=== PATIENT | female | born 1995 | race Caucasian/White ===

== ENCOUNTER → 2017-02-02 | Outpatient (CLI) | payer BC ==
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
== END ==
LOC: MW.CHFP 14:44
PROVIDERS: ATTEND Physician Assistant
DX: S69.91XA Unspecified injury of right wrist, hand and finger(s), initial encounter (principal)
CPT/HCPCS: 73110-26-RT; 73110-RT

== ENCOUNTER → 2017-02-10 | Outpatient (CLI) | payer BC ==
--- NOTE | 2017-02-11 10:35 | MR ---
EXAMINATION: MRI cervical and thoracic spine HISTORY: Anesthesia of skin COMPARISON: Radiographs dated 01/02/2017 TECHNIQUE: Multiplanar and multisequence images obtained of the cervical and thoracic spine without contrast. FINDINGS: Cervical spine: The cervical spinal alignment is normal. Vertebral body heights and disc spaces appe ar well-maintained. No abnormal bone marrow signal. The cervical spinal cord signal is normal. The v isualized intracranial components appear unremarkable. No significant disc bulge, spinal canal steno sis, or neural foraminal stenosis. The paravertebral soft tissues and visualized intracranial compar tments appear normal. Thoracic spine: The thoracic spinal alignment appears normal. There is mild wedging of the T6 verteb ral body. Mild underlying bone marrow edema is noted. There is also a trace bone marrow edema within the superior endplate of T7 without significant compression. The cervical spinal cord signal appear s normal. The paravertebral soft tissues appear normal. Tiny diffuse disc bulges are noted at T6-T7 and T7-T8 without significant spinal canal or neural foraminal stenosis. The remaining individual di sc spaces appear normal. IMPRESSION: 1. Mild wedging of the T6 vertebral body, likely posttraumatic with mild residual edema. 2. Trace edema within the T7 vertebral body without significant vertebral body compression. 3. Minimal disc bulges at T6-T7 and T7-T8 without significant underlying stenosis. 4. Grossly unremarkable cervical spine.
== END ==
LOC: MW.MRI 14:45
PROVIDERS: ATTEND Physician Assistant
DX: R20.0 Anesthesia of skin (principal); S22.050A Wedge compression fracture of T5-T6 vertebra, initial encounter for closed fracture; V89.9XXS Person injured in unspecified vehicle accident, sequela; M51.84 Other intervertebral disc disorders, thoracic region
CPT/HCPCS: 72141; 72141-26; 72146; 72146-26

== ENCOUNTER 2021-12-25 02:13 | Emergency (ER) | payer SELFPAY ==
[2021-12-25] MEDS ORDERED: Sodium Chloride 0.9% 10 ML Syringe FLUSH PRN (02:26)
[2021-12-25] MEDS ORDERED: Sodium Chloride 0.9% 1,000 ML IV ONE (02:26)
[2021-12-25] MEDS ORDERED: Sodium Chloride 0.9% 2.5 ML Syringe FLUSH PRN (02:26)
[2021-12-25 03:07] LABS: BLOOD UREA NITROGEN,BUN 8 mg/dL (7.0-18.0); CARBON DIOXIDE,CO2 24.7 mmol/L (21.0-32.0); CHLORIDE,CL 99 mmol/L (98-107); GLUCOSE RANDOM 95 mg/dL (74-106); POTASSIUM,K 3.7 mmol/L (3.5-5.1); SODIUM,NA 136 mmol/L (136-145)
[2021-12-25 05:16] VITALS: BP 109/69; PULSE 71
== END 2021-12-25 05:00 | disposition home or self-care (01) ==
LOC: MW.ED 02:13
DX: O20.0 Threatened abortion (principal); Z3A.12 12 weeks gestation of pregnancy; Z72.0 Tobacco use
CPT/HCPCS: 36415; 76813; 80053; 81001; 81025; 84702; 85025; 86900; 86901; 99284; J7030; 76816-26

== ENCOUNTER 2021-12-26 12:18 | Emergency (ER) | payer SELFPAY ==
[2021-12-26] MEDS ORDERED: Acetaminophen/oxyCODONE 325-5 MG Tab PO ONE (13:07)
[2021-12-26] MEDS ORDERED: Ondansetron 4 MG Tab.DIS PO ONE (14:18)
[2021-12-26 14:33] LABS: BLOOD UREA NITROGEN,BUN 5 mg/dL (7.0-18.0); CHLORIDE,CL 102 mmol/L (98-107); GLUCOSE RANDOM 83 mg/dL (74-106); POTASSIUM,K 3.6 mmol/L (3.5-5.1); SODIUM,NA 137 mmol/L (136-145)
[2021-12-26 15:12] VITALS: BP 104/69; PULSE 84
== END 2021-12-26 15:12 | disposition home or self-care (01) ==
LOC: MW.ED 12:18
DX: O20.9 Hemorrhage in early pregnancy, unspecified (principal); Z3A.12 12 weeks gestation of pregnancy
CPT/HCPCS: 36415; 80048; 84702; 85025; 86900; 86901; 99284; A9270

== ENCOUNTER 2022-01-20 06:34 | Day surgery (SDC) | payer MEDICAID ==
[~2022-01-20 06:34] MED LIST: Lactated Ringers 1,000 ML IV SCH
[2022-01-20] MEDS ORDERED: Ondansetron 4 MG/2 ML SDV IVPUSH PRN (07:13)
[2022-01-20] MEDS ORDERED: fentaNYL 100 MCG/2 ML SDV IVPUSH PRN (07:13)
[2022-01-20] MEDS ORDERED: Naloxone 0.4 MG/ML SDV IVPUSH PRN (07:13)
[2022-01-20] MEDS ORDERED: Albuterol 0.083% 2.5 MG/3 ML Neb Soln NEB PRN (07:13)
[2022-01-20] MEDS ORDERED: Metoclopramide 10 MG/2 ML SDV IVPUSH PRN (07:13)
[2022-01-20] MEDS ORDERED: HYDROmorphone 1 MG/ML Syringe IVPUSH PRN (07:13)
[2022-01-20] MEDS ORDERED: fentaNYL 250 MCG/5 ML SDV ONE (07:19)
[2022-01-20] MEDS ORDERED: Propofol 200 MG/20 ML SDV ONE ×2 (07:19→07:49)
[2022-01-20] MEDS ORDERED: Methylergonovine 0.2 MG/1 ML Amp ONE (07:43)
[2022-01-20] MEDS ORDERED: Dexamethasone 4 MG/ML 5 ML MDV ONE (07:53)
[2022-01-20] MEDS ORDERED: Sugammadex Sodium 200 MG/2 ML VIAL ONE (07:53)
[2022-01-20] MEDS ORDERED: Rocuronium Bromide 50 MG/5 ML Syringe ONE (07:53)
[2022-01-20] MEDS ORDERED: Lidocaine 2% Jelly 30 ML Tube ONE (07:53)
[2022-01-20] MEDS ORDERED: Ondansetron 4 MG/2 ML SDV ONE (07:53)
[2022-01-20] MEDS ORDERED: ePHEDrine 50 MG/ML SDV ONE (07:53)
[2022-01-20] MEDS ORDERED: HYDROmorphone 2 MG/ML Syringe ONE (08:09)
[2022-01-20 10:35] VITALS: BP 108/54; PULSE 56
== END 2022-01-20 10:15 | disposition home or self-care (01) ==
LOC: MW.SDS 06:34
PROVIDERS: ATTEND Obstetrics & Gynecology
DX: O02.1 Missed abortion (principal); Z79.899 Other long term (current) drug therapy; F17.210 Nicotine dependence, cigarettes, uncomplicated
CPT/HCPCS: 59820; 76998; 85027; 86850; 86900; 86901; J0330; J0690; J1100; J1170; J2210; J2405; J2704; J2765; J3010; J3490; J7120; 01965

== ENCOUNTER 2022-05-15 08:52 | Emergency (ER) | payer MEDICAID ==
[2022-05-15 09:01] VITALS: BP 116/86; PULSE 94
[2022-05-15] MEDS ORDERED: Dextrose 5%-Lactated Ringers 1,000 ML IV STA (09:17)
[2022-05-15] MEDS ORDERED: Ondansetron 4 MG/2 ML SDV IVPUSH ONE (09:17)
[2022-05-15] MEDS ORDERED: Ketorolac 30 MG/ML SDV IVPUSH ONE (09:35)
[2022-05-15 10:18] LABS: CARBON DIOXIDE,CO2 23.7 mmol/L (21.0-32.0); POTASSIUM,K 3.8 mmol/L (3.5-5.1)
[2022-05-15 10:24] LABS: CORONAVIRUS COVID-19 NAA NEGATIVE (NEGATIVE); INFLUENZA A NAA NEGATIVE (NEGATIVE); INFLUENZA B NAA NEGATIVE (NEGATIVE)
== END 2022-05-15 12:33 | disposition home or self-care (01) ==
LOC: MW.ED 08:52
DX: R10.9 Unspecified abdominal pain (principal); R19.7 Diarrhea, unspecified; R11.0 Nausea; E86.0 Dehydration; F17.210 Nicotine dependence, cigarettes, uncomplicated; Z20.822 Contact with and (suspected) exposure to COVID-19
CPT/HCPCS: 0240U; 36415; 80053; 81001; 81025; 83690; 85025; 96361; 96374; 96375; 99284; J1885; J2405; J7121; 99283

== ENCOUNTER 2022-05-16 18:44 | Inpatient (IN) | payer MEDICAID ==
[2022-05-16] MEDS ORDERED: Sodium Chloride 0.9% 1,000 ML IV ONE (18:48)
[2022-05-16 19:26] LABS: CARBON DIOXIDE,CO2 22.7 mmol/L (21.0-32.0); POTASSIUM,K 3.7 mmol/L (3.5-5.1)
[2022-05-16] MEDS ORDERED: Iopamidol 755 MG/ML 500 ML Multipack Bottle IVPUSH STA (19:26)
[2022-05-16] MEDS ORDERED: Morphine 4 MG/ML VIAL IVPUSH ONE (19:31)
[2022-05-16] MEDS ORDERED: Ondansetron 4 MG/2 ML SDV IVPUSH ONE (19:31)
[2022-05-16] MEDS ORDERED: metroNIDAZOLE/Normal Saline 500 MG in Premix Bag 1 BAG IV ONE (20:49)
[2022-05-16] MEDS ORDERED: Sodium Chloride 0.9% 1,000 ML IV SCH (21:00)
[2022-05-16] MEDS ORDERED: Ciprofloxacin in D5W 400 MG in Premix Bag 1 BAG IV SCH ×2 (21:00)
[2022-05-16] MEDS ORDERED: Ondansetron 4 MG/2 ML SDV IVPUSH PRN (22:57)
[2022-05-16] MEDS ORDERED: Morphine 2 MG/ML SYRINGE IVPUSH PRN (22:59)
[2022-05-17] MEDS: metroNIDAZOLE/Normal Saline 500 MG in Premix Bag 1 BAG IV SCH ×4 (02:23→21:48)
[2022-05-17] MEDS: Sodium Chloride 0.9% 1,000 ML IV SCH ×2 (02:23→10:35)
[2022-05-17 08:08] LABS: CARBON DIOXIDE,CO2 21.2 mmol/L (21.0-32.0); POTASSIUM,K 4.1 mmol/L (3.5-5.1)
[2022-05-17] MEDS ORDERED: Ciprofloxacin in D5W 400 MG in Premix Bag 1 BAG IV SCH ×2 (09:00)
[2022-05-17] MEDS: Ciprofloxacin in D5W 400 MG in Premix Bag 1 BAG IV SCH ×4 (10:30→20:38)
[2022-05-17] MEDS ORDERED: oxyCODONE 5 MG Tab PO PRN (11:51)
[2022-05-17] MEDS ORDERED: Ibuprofen 200 MG Tab PO PRN (11:52)
[2022-05-17] MEDS: Acetaminophen 325 MG Tab PO PRN ×2 (12:27→20:42)
[2022-05-18] MEDS: metroNIDAZOLE/Normal Saline 500 MG in Premix Bag 1 BAG IV SCH ×2 (02:27→09:00)
[2022-05-18] MEDS: Sodium Chloride 0.9% 1,000 ML IV SCH ×3 (02:30→10:27)
[2022-05-18 08:04] LABS: CARBON DIOXIDE,CO2 22.5 mmol/L (21.0-32.0); POTASSIUM,K 4.2 mmol/L (3.5-5.1)
[2022-05-18] MEDS ORDERED: Nicotine 14 MG/24 Hr Patch TRDERM PRN (10:19)
[2022-05-18] MEDS: Ciprofloxacin in D5W 400 MG in Premix Bag 1 BAG IV SCH ×2 (10:26)
[2022-05-18 12:06] VITALS: BP 116/64; PULSE 74
== END 2022-05-18 12:00 | disposition home or self-care (01) | DRG 392 ==
LOC: MW.ED 18:44 → MW.MS 20:54 → OBSVTOIN 05-17 13:13 → MW.MS 05-18 07:17
PROVIDERS: ADMIT Internal Medicine; ATTEND Internal Medicine
DX: K52.9 Noninfective gastroenteritis and colitis, unspecified (principal); F17.200 Nicotine dependence, unspecified, uncomplicated; F17.210 Nicotine dependence, cigarettes, uncomplicated; Z87.440 Personal history of urinary (tract) infections; Z79.899 Other long term (current) drug therapy
CPT/HCPCS: 36415 ×2; 74177; 80053 ×2; 83605; 83690; 85025 ×2; A9270; J0744 ×2; J2270 ×2; J2405; J3490 ×3; J7030 ×3; Q9967; 80048; 84703; 87045; 87046; 87449; 87899; 96361; 96365; 96366; 96367; 96375; 96376; 99284; 99285-25; G0378

== ENCOUNTER 2023-10-21 14:38 | Inpatient (IN) | payer OTHER ==
[2023-10-21] MEDS: Lactated Ringers 1,000 ML IV SCH ×3 (15:30→21:31)
[2023-10-21] MEDS ORDERED: Carboprost Tromethamine 250 MCG/1 mL Vial IM PRN (15:37)
[2023-10-21] MEDS ORDERED: Water For Irrigation,Sterile 1,000 ML Container IRR PRN (15:37)
[2023-10-21] MEDS ORDERED: Sodium Chloride 0.9% 2.5 ML Syringe FLUSH PRN (15:37)
[2023-10-21] MEDS ORDERED: Misoprostol 200 MCG Tab PO PRN (15:37)
[2023-10-21] MEDS ORDERED: Butorphanol 1 MG/ML SDV IVPUSH PRN (15:37)
[2023-10-21] MEDS ORDERED: Lidocaine 1% 50 ML MDV INJECT PRN (15:37)
[2023-10-21] MEDS ORDERED: Sodium Chloride 0.9% 20 ML SDV IV PRN (15:37)
[2023-10-21] MEDS ORDERED: Methylergonovine 0.2 MG/1 ML Amp IM PRN (15:37)
[2023-10-21] MEDS ORDERED: Tranexamic Acid IN NACL,ISO-OS 1,000 MG in Premix Bag 1 BAG IV PRN ×2 (15:37)
[2023-10-21] MEDS ORDERED: Sodium Chloride 0.9% 10 ML Syringe FLUSH PRN (15:37)
[2023-10-21] MEDS ORDERED: Oxytocin/0.9 % Sodium Chloride 30 UNIT/500 ML BAG IV SCH (15:45)
[2023-10-21] MEDS ORDERED: dexmedeTOMIDine HCl 200 MCG/2 ML SDV ONE (16:17)
[2023-10-21] MEDS ORDERED: Phenylephrine HCl 0.5 MG/5 ML AMP ONE (16:17)
[2023-10-21] MEDS ORDERED: Ropivacaine/PF 400 MG/200 ML PCA ONE (16:17)
[2023-10-21] MEDS ORDERED: Bupivacaine 0.25% 10 ML SDV ONE (16:17)
[2023-10-21] MEDS ORDERED: fentaNYL 100 MCG/2 ML SDV ONE (16:23)
[2023-10-21] MEDS ORDERED: Phenylephrine HCl 0.5 MG/5 ML AMP IVPUSH PRN (16:38)
[2023-10-21] MEDS ORDERED: ePHEDrine 50 MG/ML SDV IVPUSH PRN ×2 (16:38)
[2023-10-21] MEDS ORDERED: Ropivacaine HCl/PF 400 MG in Premix Bag 1 BAG EPIDUR SCH (16:45)
[2023-10-21 17:56] LABS: HEMATOCRIT 34.8 % (37.0-47.0); HEMOGLOBIN 12.2 g/dL (12.0-16.0); MEAN CORPUSCULAR HEMOGLOBIN 29.3 pg (28.0-32.0); MEAN CORPUSCULAR HGB CONC 35.1 g/dL (32.0-36.0); MEAN CORPUSCULAR VOLUME 83.5 fL (83.0-99.0); MEAN PLATELET VOLUME 11.6 fL (9.4-12.3); PLATELET COUNT,PLT 142 K/uL (150-400); RED BLOOD CELL COUNT 4.17 M/uL (4.10-5.30); WHITE BLOOD CELL COUNT,WBC 13.98 K/uL (3.9-11.3)
[2023-10-21] MEDS ORDERED: Acetaminophen 325 MG Tab PO ONE (22:08)
[2023-10-21] MEDS ORDERED: Acetaminophen 500 MG Tab PO ONE (22:36)
[2023-10-21] MEDS ORDERED: Gentamicin 40 MG/ML 2 ML Vial IV SCH (23:45)
[2023-10-22] MEDS: Ampicillin 2 GM in Sodium Chloride 0.9% 100 ML IV SCH ×4 (00:11→19:21)
[2023-10-22] MEDS ORDERED: Lanolin 100% Cream 7 GM Tube TOP PRN (02:53)
[2023-10-22] MEDS ORDERED: Methylergonovine 0.2 MG/1 ML Amp IM PRN (02:53)
[2023-10-22] MEDS ORDERED: Tranexamic Acid IN NACL,ISO-OS 1,000 MG in Premix Bag 1 BAG IV PRN ×2 (02:53)
[2023-10-22] MEDS ORDERED: Benzocaine/Menthol 20%-0.5% Spray 78 GM Cannister TOP PRN (02:53)
[2023-10-22] MEDS ORDERED: Bisacodyl 10 MG Supp RECTAL PRN (02:53)
[2023-10-22 03:05] LABS: PH,UMBILICAL ARTERIAL 7.251 (7.18-7.38); PH,UMBILICAL VENOUS 7.329 (7.25-7.45)
[2023-10-22] MEDS: Ibuprofen 800 MG Tab PO PRN ×2 (06:34→17:56)
[2023-10-22] MEDS: Witch Hazel Medicated Pads 40/Jar TOP PRN (06:36)
[2023-10-22] MEDS: Acetaminophen 500 MG Tab PO PRN (12:57)
[2023-10-22] MEDS: Docusate Sodium 100 MG Cap PO PRN (21:02)
[2023-10-23] MEDS: Ampicillin 2 GM in Sodium Chloride 0.9% 100 ML IV SCH (01:40)
[2023-10-23] MEDS: Witch Hazel Medicated Pads 40/Jar TOP PRN (02:42)
[2023-10-23 06:41] LABS: HEMATOCRIT 26.9 % (37.0-47.0); HEMOGLOBIN 9.1 g/dL (12.0-16.0)
[2023-10-23] MEDS: Docusate Sodium 100 MG Cap PO PRN (09:48)
[2023-10-23] MEDS: Ibuprofen 800 MG Tab PO PRN ×2 (09:48→19:24)
[2023-10-23] MEDS: Acetaminophen 500 MG Tab PO PRN ×2 (09:49→19:24)
[2023-10-23] MEDS: Ferrous Sulfate 325 MG Tab PO SCH ×2 (19:15→19:24)
[2023-10-24] MEDS: Ferrous Sulfate 325 MG Tab PO SCH (08:56)
[2023-10-24] MEDS: Docusate Sodium 100 MG Cap PO PRN (08:56)
[2023-10-24] MEDS: Acetaminophen 500 MG Tab PO PRN (08:56)
[2023-10-24] MEDS: Ibuprofen 800 MG Tab PO PRN (08:56)
[2023-10-24] MEDS: Witch Hazel Medicated Pads 40/Jar TOP PRN (08:57)
[2023-10-24 09:57] VITALS: BP 126/72; PULSE 72
== END 2023-10-24 12:27 | disposition home or self-care (01) | DRG 807 ==
LOC: MW.OBCHECK 14:38 → MW.OB 14:40 → MW.OBCHECK 15:36 → MW.OB 15:37 → OBSVTOIN 10-22 02:11 → MW.OB 10-22 08:29
PROVIDERS: ADMIT Obstetrics & Gynecology; ATTEND Obstetrics & Gynecology
PROC: 10E0XZZ Delivery of Products of Conception, External Approach (ICD-10-PCS; principal; 2023-10-22)
DX: O48.0 Post-term pregnancy (principal); Z37.0 Single live birth; Z3A.40 40 weeks gestation of pregnancy; O42.02 Full-term premature rupture of membranes, onset of labor within 24 hours of rupture; O77.0 Labor and delivery complicated by meconium in amniotic fluid
CPT/HCPCS: 01967; 36415; 51702; 59025; 59409; 82803; 85014; 85018; 85027; 86592; 86850; 86900; 86901; A9270-GY; J0290; J1580; J2371; J2795; J3010; J3490; J7120

== ENCOUNTER 2025-03-21 11:48 | Emergency (ER) | payer OTHER ==
[2025-03-21] MEDS ORDERED: Sodium Chloride 0.9% 10 ML Syringe FLUSH PRN (12:32)
[2025-03-21] MEDS ORDERED: Sodium Chloride 0.9% 2.5 ML Syringe FLUSH PRN (12:32)
[2025-03-21] MEDS: Sodium Chloride 0.9% 1,000 ML IV ONE (12:54)
[2025-03-21] MEDS: Ketorolac 30 MG/ML SDV IVPUSH ONE (12:54)
[2025-03-21 12:56] LABS: BASOPHILS ABSOLUTE AUTO 0.01 K/uL (0.00-0.20); BASOPHILS PERCENT AUTO 0.1 % (0.0-1.0); EOSINOPHILS PERCENT AUTO 1.1 % (0.0-6.0); HEMOGLOBIN 14.7 g/dL (12.0-16.0); IMMATURE GRAN ABSOLUTE AUTO 0.01 K/uL (0.00-0.05); IMMATURE GRAN PERCENT AUTO 0.1 % (0.0-0.4); MEAN CORPUSCULAR HEMOGLOBIN 30.3 pg (28.0-32.0); MEAN CORPUSCULAR HGB CONC 34.2 g/dL (32.0-36.0); MEAN CORPUSCULAR VOLUME 88.7 fL (83.0-99.0); MEAN PLATELET VOLUME 10.3 fL (9.4-12.3); MONOCYTES ABSOLUTE AUTO 1.15 K/uL (0.00-0.80); MONOCYTES PERCENT AUTO 13.2 % (0.0-8.0); NEUTROPHILS ABSOLUTE AUTO 6.07 K/uL (1.80-7.70); NEUTROPHILS PERCENT AUTO 69.5 % (41.0-71.0); PLATELET COUNT,PLT 195 K/uL (150-400); RED BLOOD CELL COUNT 4.85 M/uL (4.10-5.30); WHITE BLOOD CELL COUNT,WBC 8.74 K/uL (3.9-11.3)
[2025-03-21 13:24] LABS: ALBUMIN 3.9 g/dL (3.4-5.0); BILIRUBIN TOTAL 0.8 mg/dL (0.2-1.0); CALCIUM 8.9 mg/dL (8.5-10.1); CARBON DIOXIDE,CO2 26.4 mmol/L (21.0-32.0); EST CRCL DRUG DOSING (CG) 97.52 mL/min; MAGNESIUM 1.8 mg/dL (1.8-2.4); PROTEIN TOTAL,TP 7.8 g/dL (6.4-8.2)
[2025-03-21 13:28] LABS: LACTIC ACID 0.7 mmol/L (0.4-2.0)
[2025-03-21 13:50] LABS: CORONAVIRUS COVID-19 NAA NEGATIVE (NEGATIVE); INFLUENZA A NAA NEGATIVE (NEGATIVE); INFLUENZA B NAA NEGATIVE (NEGATIVE); RESPIRATORY SYNCYTIAL VIR NAA NEGATIVE (NEGATIVE)
[2025-03-21] MEDS: Iopamidol 755 MG/ML 500 ML Multipack Bottle IVPUSH STA (14:09)
[2025-03-21 15:06] LABS: BILIRUBIN,URINE NEGATIVE (NEGATIVE); COLOR,URINE YELLOW; GLUCOSE,URINE NEGATIVE (NEGATIVE); KETONES,URINE NEGATIVE (NEGATIVE); LEUKOCYTE ESTERASE,URINE TRACE (NEGATIVE); NITRITE,URINE POSITIVE (NEGATIVE); OCCULT BLOOD,URINE SMALL (NEGATIVE); PH,URINE 5.5 (5.0-8.0); PROTEIN,URINE 30 mg/dL (NEGATIVE); UROBILINOGEN,URINE 0.2 EU/dL (<2.0)
[2025-03-21 15:07] LABS: APPEARANCE,URINE HAZY
[2025-03-21 15:13] LABS: BACTERIA,URINE 2+ (NEGATIVE); EPITHELIAL CELLS,URINE FEW (NONE-FEW); RBC,URINE 0-1 (0-2/HPF); WBC,URINE 15-20 (0-5/HPF)
[2025-03-21] MEDS: cefTRIAXone 1 GM in Water For Injection, Sterile 10 ML IVPUSH ONE (16:44)
[2025-03-21 16:50] VITALS: BP 118/55
[2025-03-21 17:24] VITALS: PULSE 87
== END 2025-03-21 17:24 | disposition home or self-care (01) ==
LOC: MW.ED 11:48
DX: N12 Tubulo-interstitial nephritis, not specified as acute or chronic (principal); Z75.3 Unavailability and inaccessibility of health-care facilities
CPT/HCPCS: 0241U; 36415; 74177; 80053; 81001; 81025; 83605; 83690; 83735; 84703; 85025; 87086; 96361; 96365; 96366; 96375; 99284; J0696; J1885; J7030; Q9967; 99283